=== PATIENT | female | born 1960 | race African-American/Black ===

== ENCOUNTER → 2020-06-05 | Outpatient (CLI) | payer MEDICAID | END | disposition home or self-care (01) | LOC: RAH 10:56 | PROVIDERS: ATTEND Obstetrics & Gynecology | DX: Z12.31 Encounter for screening mammogram for malignant neoplasm of breast (principal); N64.89 Other specified disorders of breast | CPT/HCPCS: 77067 ==

== ENCOUNTER → 2021-04-08 | Outpatient (CLI) | payer MEDICAID | END | disposition home or self-care (01) | LOC: RAH 10:16 | PROVIDERS: ATTEND Otolaryngology Plastic Surgery within the Head & Neck | DX: K21.9 Gastro-esophageal reflux disease without esophagitis (principal); R13.10 Dysphagia, unspecified | CPT/HCPCS: 74230; 92611 ==

== ENCOUNTER 2022-12-25 10:57 | Day surgery (SDC) | payer MEDICAID ==
[2022-12-23 12:47] VITALS: BP 160/63
[2022-12-23 13:06] LABS: CREATININE 2.1 mg/dL (0.5-1.5); POTASSIUM 4.5 mmol/L (3.5-5.1)
[2022-12-23 13:16] LABS: BASOPHILS % (AUTO) 0.6 % (0.0-5.0); EOSINOPHILS % (AUTO) 2.9 % (0.0-8.0); HEMATOCRIT 43.7 % (36-48); LYMPHOCYTES % (AUTO) 50.1 % (21.0-51.0); MEAN CORPUSCULAR HEMOGLOBIN 31.2 pg (27.0-33.0); MEAN CORPUSCULAR HGB CONC 31.8 g/dL (32.0-36.0); MEAN CORPUSCULAR VOLUME 98.2 fL (79-99); MONOCYTES % (AUTO) 6.6 % (3.0-13.0); NEUTROPHILS % (AUTO) 39.7 % (40.0-77.0); PLATELET COUNT (AUTO) 287 K/uL (130-400); RED BLOOD CELL COUNT(AUTO) 4.45 MIL/uL (4.00-5.50); RED CELL DISTRIBUTION WIDTH 12.7 % (11.0-15.5)
[~2022-12-25] VITALS: Ht 167.6 cm; Wt 55.9 kg
[2022-12-25] VITALS (17 sets, daily range): BP systolic 134–180; BP diastolic 63–88
[~2022-12-25 10:57] MED LIST: ALBU90AE2 IH; BACL10TA PO; GABA300C PO; HYDR200T4 PO; INSU100V12 SQ; LEVE750T4 PO; LISI20TA24 PO; METH1TAB45 PO; METO-296 PO; MIRT-93 PO; QUET300T19 PO; SYMB8060 IH
[2022-12-25] MEDS ORDERED: 0.9%NACL 1000ML 1,000 ML IV ONE (11:54)
[2022-12-25] MEDS ORDERED: CEFAZOLIN SODIUM 1 GM VIAL ONE (11:54)
[2022-12-25] MEDS ORDERED: BUPIVACAINE/PF 0.5% 10ML VIAL ONE (12:56)
[2022-12-25] MEDS ORDERED: PROPOFOL 10 MG/ML 20ML VIAL IV ONE (13:12)
[2022-12-25] MEDS ORDERED: DEXAMETHASONE SOD PHOSPHATE 10MG/ML 1ML VIAL ONE (13:12)
[2022-12-25] MEDS ORDERED: MIDAZOLAM HCL 1 MG/ML 2ML VIAL ONE (13:12)
[2022-12-25] MEDS ORDERED: LIDOCAINE PF 100MG/5ML (2%) SYRINGE 5ML ONE (13:12)
[2022-12-25] MEDS ORDERED: SUCCINYLCHOLINE 200MG/10ML SYR ONE (13:12)
[2022-12-25] MEDS ORDERED: NEOSTIGMINE 5MG/5ML SYR IV ONE (13:13)
[2022-12-25] MEDS ORDERED: GLYCOPYRROLATE 1 MG/5 ML SYRINGE ONE (13:13)
[2022-12-25] MEDS ORDERED: ROCURONIUM 10MG/1ML SYR 10 MG/ML ML ONE (13:14)
[2022-12-25] MEDS ORDERED: FENTANYL CITRATE PF 50 MCG/1 ML 2ML VIAL ONE (13:14)
[2022-12-25] MEDS ORDERED: ONDANSETRON 4MG INJ ONE (13:14)
[2022-12-25] MEDS ORDERED: CEFAZOLIN SODIUM 2 GM VIAL IVPB ONE (13:20)
[2022-12-25] MEDS ORDERED: MEPERIDINE-PF 25 MG/ML SYG ONE (13:55)
[2022-12-25] MEDS ORDERED: LABETALOL 20MG VIAL IV ONE (14:22)
== END 2022-12-25 15:45 | disposition home or self-care (01) ==
LOC: DAH 10:57
PROVIDERS: ATTEND Surgery
DX: D17.22 Benign lipomatous neoplasm of skin and subcutaneous tissue of left arm (principal); Z20.822 Contact with and (suspected) exposure to COVID-19; I10 Essential (primary) hypertension; J44.9 Chronic obstructive pulmonary disease, unspecified; E11.9 Type 2 diabetes mellitus without complications; E78.5 Hyperlipidemia, unspecified; Z79.899 Other long term (current) drug therapy; Z79.01 Long term (current) use of anticoagulants
CPT/HCPCS: 87426; 36415; 80048; 85025; 24071; 82948 ×2; A6260; A4663; J7030 ×2; A4452; J3010; J0690 ×2; J0330; J3490 ×4; J1100; J2710; J2250; J2405; J2175; A4649; A4215 ×2; A4223; A4222; A4221; S0020; J2001; J2704

== ENCOUNTER 2024-12-11 09:20 | Day surgery (SDC) | payer MEDICAID ==
[~2024-12-11] VITALS: Ht 165.1 cm; Wt 42.6 kg
[2024-12-11] VITALS (10 sets, daily range): BP systolic 95–151; BP diastolic 43–89; PULSE 81–91; RESP 15–18; TEMP 97.4–97.9
[~2024-12-11 09:20] MED LIST changes: +0.9%NACL 1000ML 1,000 ML IV ONE; -ALBU90AE2 IH; +ALBU90AE3 IH; -HYDR200T4 PO; +HYDR200T75 PO
[2024-12-11] MEDS ORDERED: ETOD400T3 PO (10:03)
[2024-12-11] MEDS ORDERED: LISI20TA24 PO (10:03)
[2024-12-11] MEDS ORDERED: INSULIN LEVEMIR SQ (10:03)
[2024-12-11] MEDS ORDERED: ALBU18HF7 IH (10:03)
[2024-12-11] MEDS ORDERED: CETI-89 PO (10:05)
[2024-12-11] MEDS ORDERED: IRON1CAP32 PO (10:06)
[2024-12-11] MEDS ORDERED: LEVE1000 PO (10:07)
[2024-12-11] MEDS ORDERED: SUPER GREENS PO (10:08)
[2024-12-11] MEDS ORDERED: proPOFol 10 MG/ML 20ML VIAL IV ONE (10:29)
== END 2024-12-11 12:00 | disposition home or self-care (01) ==
LOC: ENDO 09:20 → DAH 09:20 → ENDO 12:00
PROVIDERS: ATTEND Internal Medicine
DX: Z12.11 Encounter for screening for malignant neoplasm of colon (principal); K92.1 Melena; K57.30 Diverticulosis of large intestine without perforation or abscess without bleeding; K27.9 Peptic ulcer, site unspecified, unspecified as acute or chronic, without hemorrhage or perforation; R94.5 Abnormal results of liver function studies; J45.909 Unspecified asthma, uncomplicated; I25.10 Atherosclerotic heart disease of native coronary artery without angina pectoris; E78.5 Hyperlipidemia, unspecified; E11.22 Type 2 diabetes mellitus with diabetic chronic kidney disease; N18.9 Chronic kidney disease, unspecified; Z90.710 Acquired absence of both cervix and uterus; Z98.890 Other specified postprocedural states; Z88.8 Allergy status to other drugs, medicaments and biological substances; Z79.01 Long term (current) use of anticoagulants; Z86.73 Personal history of transient ischemic attack (TIA), and cerebral infarction without residual deficits; Z79.899 Other long term (current) drug therapy
CPT/HCPCS: 82948 ×2; 45378; J7030 ×2; J2704; A4620; A4215; A4223; A7002; A4222; A4221; A4663; A4606; J3490